=== PATIENT | male | born 1990 | race Caucasian/White ===

== ENCOUNTER 2017-09-17 17:53 | Emergency (ER) | payer SELFPAY ==
[~2017-09-17] VITALS: Ht 170.2 cm; Wt 87.0 kg
[2017-09-17] MEDS ORDERED: SODIUM CHLORIDE 0.9% 1,000 ML IV ONE (17:55)
[2017-09-17] MEDS ORDERED: IOHEXOL-300 100 ML BOTTLE ONE (18:32)
[2017-09-17 18:38] LABS: BASOPHILS % 1.1 % (0.0-2.0); EOSINOPHILS % 3.8 % (0.0-5.0); HEMATOCRIT. 46.5 % (42.0-52.0); HEMOGLOBIN. 15.9 g/dL (14.0-18.0); LYMPHOCYTES % 32.1 % (20.0-50.0); MEAN CORPUSCULAR HEMOGLOBIN 31.5 pg (28.0-32.0); MEAN CORPUSCULAR VOLUME 91.8 fL (80.0-94.0); MEAN PLATELET VOLUME 9.2 fl (7.4-10.4); MONOCYTES % 12.3 % (2.0-8.0); NEUTROPHILS % 50.7 % (40.0-76.0); PLATELET 252 x1000/uL (130-400); RED BLOOD CELL COUNT 5.06 mill/uL (4.7-6.1); RED CELL DISTRIBUTION WIDTH 13.3 % (11.6-14.6)
[2017-09-17 18:43] LABS: CHLORIDE 110 mEq/L (98-107)
[2017-09-17] MEDS ORDERED: MORPHINE SULFATE 4 MG/ML CPJ (NOT FOR IM USE) IV ONE (18:45)
[2017-09-17 18:46] LABS: PARTIAL THROMBOPLASTIN TIME 24.8 sec (23.4-31.0); PROTHROMBIN TIME 10.4 sec (9.4-11.6)
[2017-09-17 18:53] LABS: CREATINE KINASE 183 IU/L (39-308)
[2017-09-17] MEDS ORDERED: TETANUS, DIPHTHERIA, PERTUSSIS VAC/PF 0.5ML (>7YR OLD) IM ONE (19:30)
[2017-09-17 21:13] VITALS: BP 117/76
== END 2017-09-17 21:14 | disposition home or self-care (01) ==
LOC: ER 18:06
DX: S41.021A Laceration with foreign body of right shoulder, initial encounter (principal); X95.9XXA Assault by unspecified firearm discharge, initial encounter; S00.81XA Abrasion of other part of head, initial encounter; X99.0XXA Assault by sharp glass, initial encounter; Y92.410 Unspecified street and highway as the place of occurrence of the external cause; Y93.89 Activity, other specified; F12.90 Cannabis use, unspecified, uncomplicated; Z72.0 Tobacco use
CPT/HCPCS: 29105; 36415; 71045; 71260; 74177; 80053; 82550; 83690; 84484; 85025; 85610; 85730; 86850; 86900; 86901; 90471; 90715; 96374; 99285; A4217; J2270; J7030; Q9967; Z7610; A4565